=== PATIENT | female | born 1980 ===

== ENCOUNTER 2017-08-18 12:30 | Inpatient (IN) | payer OTHER ==
[~2017-08-18] VITALS: Ht 154.9 cm; Wt 110.0 kg
[2017-08-18] MEDS ORDERED: WELLBUTRIN XL300 MG PO (14:56)
[2017-08-18] MEDS ORDERED: ZANTAC300 MG PO (14:56)
[2017-08-18] MEDS ORDERED: PROTONIX40 MG PO (14:57)
== END 2017-08-27 15:58 | DRG 743 ==
LOC: EDSTATUS 12:30 → O/R 08-25 06:50 → OB/GYN 08-25 06:50 → O/R 08-25 11:09 → OB/GYN 08-25 11:30 → CIR.AMB 08-25 12:30 → EDSTATUS 08-25 12:30 → SURH 08-25 14:45 → OB/GYN 08-26 19:46
PROVIDERS: Obstetrics & Gynecology Gynecologic Oncology
PROC: 0UB90ZZ Excision of Uterus, Open Approach (ICD-10-PCS; principal; 2017-08-25 14:45)
DX: D25.1 Intramural leiomyoma of uterus (principal); E11.69 Type 2 diabetes mellitus with other specified complication